=== PATIENT | female | born 1975 | race Caucasian/White ===

== ENCOUNTER 2024-01-25 19:51 | Emergency (ER) | payer OTHER ==
[~2024-01-25] VITALS: Ht 157.4 cm; Wt 81.6 kg
== END 2024-01-25 22:27 | disposition home or self-care (01) ==
LOC: ED 19:51
DX: N94.2 Vaginismus (principal); J45.909 Unspecified asthma, uncomplicated; F32.A Depression, unspecified; Z88.5 Allergy status to narcotic agent; Z88.6 Allergy status to analgesic agent; Z88.8 Allergy status to other drugs, medicaments and biological substances

== ENCOUNTER 2024-06-30 23:01 | Emergency (ER) | payer OTHER ==
[2024-06-30] MEDS ORDERED: Acetaminophen/Hydrocodone 5 MG/325 MG TABLET PO ONE (23:55)
[2024-06-30] MEDS ORDERED: PENICILLIN V POTASSIUM 500 MG TAB PO ONE (23:55)
[2024-06-30] MEDS ORDERED: Ondansetron Hydrochloride 4 MG TAB SL ONE (23:55)
[2024-06-30] MEDS ORDERED: PENICILLIN VK500 MG PO (23:58)
== END 2024-07-01 00:15 | disposition home or self-care (01) ==
LOC: ED 23:01
DX: K02.9 Dental caries, unspecified (principal); Z88.5 Allergy status to narcotic agent; Z88.1 Allergy status to other antibiotic agents; Z91.048 Other nonmedicinal substance allergy status